=== PATIENT | male | born 1945 | race Caucasian/White ===

== ENCOUNTER 2021-12-05 11:05 | Emergency (ER) | payer MEDICARE, OTHER ==
[~2021-12-05 11:05] MED LIST: ADVIL200 M1 PO; ASPIRIN CHEWABL81 MG PO; CARVEDILOL6.25 MG PO; CENTRUM ADULTS1 EACH PO; DEXILANT60 MG PO; DIGITEK125 MCG PO; ELIQUIS5 MG PO; FEOSOL325 MG PO; FLOMAX0.4 MG PO; NORCO 5-325 TA1 EACH PO; PERCOCET 5-3251 EACH PO; RAMIPRIL10 MG PO; VESICARE10 MG PO; VYTORIN 10-801 EACH PO; XARELTO10 MG PO; ZOLOFT50 MG PO
[2021-12-05 11:32] LABS: BASOPHIL 0.5 % (0-2); EOSINOPHIL 0.8 % (0-7); HGB 14.6 g/dl (13.2-18.0); LYMPHOCYTE 14.8 % (15-48); MCHC 32.4 g/dL (32.0-36.0); MCV 92.6 fL (78.0-100.0); MONOCYTE 5.5 % (0-12); MPV 11.1 fL (6.0-9.5); NEUTROPHIL 78.2 % (41-80); NRBC 0; PLT 175 K/uL (150-400); RBC 4.86 M/uL (4.70-6.00); RDW 12.7 % (11.5-14.0); WBC 8.8 K/uL (4.0-10.5)
[2021-12-05 11:44] LABS: INR 1.22 (0.9-1.2); PROTHROMBIN TIME 14.8 SECONDS (11.8-13.4)
[2021-12-05 11:49] LABS: BILIRUBIN - TOTAL 0.6 mg/dL (0.2-1.0); BUN/CREAT RATIO (CALC) 12.8 RATIO; CREATININE 0.94 mg/dL (0.67-1.17); GLOBULIN (CALCULATION) 3.3 g/dL; POTASSIUM 4.2 mmol/L (3.5-5.1); TOTAL PROTEIN 7.3 g/dL (6.4-8.2)
== END 2021-12-05 12:20 | disposition other institution (70) ==
LOC: FER 11:05
PROVIDERS: Emergency Medicine
DX: I63.412 Cerebral infarction due to embolism of left middle cerebral artery (principal); I25.10 Atherosclerotic heart disease of native coronary artery without angina pectoris; Z79.01 Long term (current) use of anticoagulants
CPT/HCPCS: 36415; 70450; 71045; 80053; 84484; 85025; 85610; 93005; J1953; J7030